=== PATIENT | male | born 1975 | race Caucasian/White ===

== ENCOUNTER 2016-10-19 07:20 | Emergency (ER) | payer MEDICAID, OTHER ==
[~2016-10-19] VITALS: Wt 89.0 kg
[2016-10-19] MEDS ORDERED: SULF1TAB31 PO (08:24)
[2016-10-19] MEDS ORDERED: HYDROCODONE/APAP (5/325) TAB PO ONE (08:30)
[2016-10-19] MEDS ORDERED: LIDOCAINE 1% (MDV) 20 ML INJ SC ONE (08:30)
[2016-10-19] MEDS ORDERED: DIPHTH/TET/ACEL PERTUSS (ADULT) 0.5 ML VIAL IM* ONE (08:30)
--- NOTE | 2016-10-19 08:30 | ERD ---
ER Documentation Chief Complaint Date/Time DATE: 10/19/16 TIME: 08:24 Chief Complaint ABSCESS ON LOWER BACK HPI Patient is a 41-year-old male who presents the emergency for concerns of an abscess to his left buttocks. Patient states the lesion started approximately 1 week ago. Patient states the lesion continues to grow in size. Patient saw his primary care physician who gave him Rocephin, Toradol and dexamethasone shot in the office. Patient was discharged home with a prescription for Keflex. Patient states despite taking his medications, his abscess continues to grow in size. Patient reports redness. Patient ports difficulty sitting secondary to pain. Patient denies any fevers or chills. Patient denies any nausea, vomiting or LOC. Patient does not recall his last tetanus vaccination, states greater than 5 years. ROS All systems reviewed and are negative except as per history of present illness. Medications Home Meds Active Scripts Hydrocodone/Acetaminophen ([place] 5-325 Tablet) 1 Each Tablet, 1 TAB PO Q6H Y for PAIN, #7 TAB Prov:JEAN GALAN PA-C 10/19/16 Ibuprofen* (Motrin*) 600 Mg Tab, 600 MG PO Q6, #30 TAB Prov:JEAN GALAN PA-C 10/19/16 Sulfamethoxazole/Trimethoprim* (Bactrim Ds* Tablet) 1 Each Tablet, 1 TAB PO BID , #20 TAB Prov:JEAN GALAN PA-C 10/19/16 PMhx/Soc Medical and Surgical Hx: pt denies Medical Hx, pt denies Surgical Hx History of Surgery: No Anesthesia Reaction: No Hx Neurological Disorder: No Hx Respiratory Disorders: No Hx Cardiac Disorders: No Hx Psychiatric Problems: No Hx Miscellaneous Medical Probl: No Hx Alcohol Use: No Hx Substance Use: No Hx Tobacco Use: No Smoking Status: Never smoker FmHx Family History: No diabetes Physical Exam Vitals Vital Signs Date Time Temp Pulse Resp B/P Pulse Ox O2 Delivery O2 Flow Rate FiO2 10/19/16 07:26 98.0 75 18 148/71 99 Physical Exam GENERAL: Well-developed, well-nourished male. Appears in no acute distress. Speaking in full sentences. HEAD: Normocephalic, atraumatic. EYES: Pupils are equally reactive bilaterally. EOMs grossly intact. No conjunctival erythema. ENT: Moist mucous membranes. No uvula deviation. No kissing tonsils. NECK: Supple. No meningismus. Normal range of motion of the neck. LUNG: Clear to auscultation bilaterally. No rhonchi, wheezing, rales or coarse breath sounds. HEART: Regular rate and rhythm. No murmurs, rubs or gallops. LEFT BUTTOCKS: 3 cm circular abscess noted to the upper left buttocks. + Redness and swelling. Minimal warmth. No streaking. + Fluctuance and induration EXTREMITIES: Equal pulses bilaterally. No peripheral clubbing, cyanosis or edema. No unilateral leg swelling. NEUROLOGIC: Alert and oriented. Moving all four extremities without any difficulty. Normal speech. Steady gait. SKIN: Normal color. Warm and dry. No rashes or lesions. Results 24 hrs Current Medications Medications (Trade) Dose Ordered Sig/Noemí Route PRN Reason Start Time Stop Time Status Last Admin Dose Admin Acetaminophen/ Hydrocodone Bitart ([place] (5/325)) 1 tab ONCE ONCE PO 10/19/16 08:30 10/19/16 08:31 DC 10/19/16 08:32 Lidocaine (Xylocaine 1% (Mdv) 20 ml) 20 ml ONCE ONCE SC 10/19/16 08:30 10/19/16 08:31 DC 10/19/16 08:32 Diphtheria/ Tetanus/Acell Pertussis (Adacel) 0.5 ml ONCE ONCE IM* 10/19/16 08:30 10/19/16 08:31 DC 10/19/16 08:33 Procedures/MDM ED COURSE: The patient was stable throughout ED course. I kept the patient and/or family informed of laboratory and diagnostic imaging results throughout the ED course. PROCEDURES: INCISION AND DRAINAGE: The patient was verbally consented prior to procedure. Patient was explained the risks, benefits and alternatives to this procedure. Location: Left buttocks Abscess size: 3 cm Anesthesia: local 1% lidocaine, 5 cc Preparation: The area was prepped in a sterile fashion using betadine x3 cleanses. A sterile field was prepared. Technique: A sterile 11 blade scalpel was used to make a 1 cm linear incision into the abscess. Procedure: A midline abscess incision was made using a sterile scalpel in a linear fashion. Purulent material was expressed with direct pressure. Blunt probing was used to break up loculations. Bleeding was minimal. Packing: none The patient tolerated the procedure well with no complications. The wound was dressed in sterile gauze. The patient was neurovascularly intact post- procedure. Post-procedural wound care was discussed with the patient. MEDICATIONS GIVEN: [place], Tdap Patient tolerated medication well with no adverse reactions. Patient reported improvement in pain. MEDICAL DECISION MAKING: This is a 41-year-old male who presents to the ED for concerns of an abscess to his left buttocks. Vital signs were reviewed. Patient is afebrile. Incision and drainage were performed here in the emergency department. Copious amounts of purulent discharge were expressed from the affected site. Blunt probing was used to break up loculations. Patient was given his tetanus vaccination here in the ED.. Post-procedural wound care was discussed with the patient. At this time, patient's presentation is most consistent with buttocks abscess, low suspicion for pilonidal abscess, necrotizing fasciitis, neurovascular injury, fracture, dislocation. Patient was advised to continue Keflex. Patient will be prescribed Bactrim as well. Patient was advised to return to the ED in 2 days for wound recheck. PRESCRIPTIONS: Bactrim, ibuprofen, [place] DISCHARGE: At this time, the patient is stable for discharge and outpatient management. Patient was advised to return to the ED in 2 days for wound recheck. Post- procedural wound care was discussed with the patient. I have instructed the patient to promptly return to the ER for any new or worsening symptoms including increasing pain, fever, warmth, redness or swelling. The patient and/ or family expressed understanding of and agreement with this plan. All questions were answered. Home care instructions were provided. Departure Diagnosis: Primary Impression: Abscess Condition: Stable Patient Instructions: Abscess, Incision And Drainage Referrals: [facility] YOU HAVE RECEIVED A MEDICAL SCREENING EXAM AND THE RESULTS INDICATE THAT YOU DO NOT HAVE A CONDITION THAT REQUIRES URGENT TREATMENT IN THE EMERGENCY DEPARTMENT. FURTHER EVALUATION AND TREATMENT OF YOUR CONDITION CAN WAIT UNTIL YOU ARE SEEN IN YOUR DOCTORS OFFICE WITHIN THE NEXT 1-2 DAYS. IT IS YOUR RESPONSIBILITY TO MAKE AN APPOINTMENT FOR FOLOW-UP CARE. IF YOU HAVE A PRIMARY DOCTOR --you should call your primary doctor and schedule an appointment IF YOU DO NOT HAVE A PRIMARY DOCTOR YOU CAN CALL OUR PHYSICIAN REFERRAL HOTLINE AT IF YOU CAN NOT AFFORD TO SEE A PHYSICIAN YOU CAN CHOSE FROM THE FOLLOWING [facility] [address] [facility]. [facility] [address] [facility] [address] [facility] [address] [facility] [address] [facility]. [facility] [address] [facility]. [facility] YOU HAVE RECEIVED A MEDICAL SCREENING EXAM AND THE RESULTS INDICATE THAT YOU DO NOT HAVE A CONDITION THAT REQUIRES URGENT TREATMENT IN THE EMERGENCY DEPARTMENT. FURTHER EVALUATION AND TREATMENT OF YOUR CONDITION CAN WAIT UNTIL YOU ARE SEEN IN YOUR DOCTORS OFFICE WITHIN THE NEXT 1-2 DAYS. IT IS YOUR RESPONSIBILITY TO MAKE AN APPOINTMENT FOR FOLOW-UP CARE. IF YOU HAVE A PRIMARY DOCTOR --you should call your primary doctor and schedule and appointment IF YOU DO NOT HAVE A PRIMARY DOCTOR YOU CAN CALL OUR PHYSICIAN REFERRAL HOTLINE AT . IF YOU CAN NOT AFFORD TO SEE A PHYSICIAN YOU CAN CHOSE FROM THE FOLLOWING [facility] INSTITUTIONS: [facility] [address] [place] [address] [facility] [address] [place] [address] [facility] + [facility] [address] [place] [address] Additional Instructions: Call your primary care doctor TOMORROW for an appointment during the next 1-2 days.See the doctor sooner or return here if your condition worsens before your appointment time. Return in 2 days for wound recheck. Start taking Bactrim. Continue Keflex. JEAN GALAN PA-C Oct 19, 2016 08:30
[2016-10-19] MEDS ORDERED: IBUP-1542 PO (09:15)
[2016-10-19] MEDS ORDERED: HYDR-906 PO (09:15)
== END 2016-10-19 09:32 | disposition home or self-care (01) ==
LOC: FTE 07:20
DX: L02.31 Cutaneous abscess of buttock (principal); Z23 Encounter for immunization
CPT/HCPCS: 10060; 90471; 90715; Z7502; Z7610

== ENCOUNTER 2016-10-21 06:49 | Emergency (ER) | payer MEDICAID ==
[~2016-10-21] VITALS: Wt 90.0 kg
[~2016-10-21 06:49] MED LIST: HYDR-906 PO; IBUP-1542 PO; SULF1TAB31 PO
--- NOTE | 2016-10-21 07:07 | ERD ---
ER Documentation Chief Complaint Date/Time DATE: 10/21/16 TIME: 07:05 Chief Complaint LEFT BUTTOCK I AND D WOUND RECHECK. NO COMPLAINTS AT THIS TIME. HPI Is a 41-year-old male who presents the emergency department today for a wound check of an abscess he had drained 2 days ago. Patient states he is taking his medications as prescribed. Denies any fevers or chills. Denies any complaints. ROS All systems reviewed and are negative except as per history of present illness. Medications Home Meds Active Scripts Hydrocodone/Acetaminophen ([place] 5-325 Tablet) 1 Each Tablet, 1 TAB PO Q6H Y for PAIN, #7 TAB Prov:JEAN GALAN PA-C 10/19/16 Ibuprofen* (Motrin*) 600 Mg Tab, 600 MG PO Q6, #30 TAB Prov:JEAN GALAN PA-C 10/19/16 Sulfamethoxazole/Trimethoprim* (Bactrim Ds* Tablet) 1 Each Tablet, 1 TAB PO BID , #20 TAB Prov:JEAN GALAN PA-C 10/19/16 Allergies Allergies: Coded Allergies: No Known Allergy (Unverified , 10/19/16) PMhx/Soc History of Surgery: No Anesthesia Reaction: No Hx Neurological Disorder: No Hx Respiratory Disorders: No Hx Cardiac Disorders: No Hx Psychiatric Problems: No Hx Miscellaneous Medical Probl: No Hx Alcohol Use: No Hx Substance Use: No Hx Tobacco Use: No Smoking Status: Never smoker Physical Exam Vitals Vital Signs Date Time Temp Pulse Resp B/P Pulse Ox O2 Delivery O2 Flow Rate FiO2 10/21/16 06:51 98.5 77 21 138/81 99 Physical Exam Const: No acute distress Head: Atraumatic Eyes: Normal Conjunctiva ENT: Normal External Ears, Nose and Mouth. Neck: Full range of motion..~ No meningismus. Resp: Clear to auscultation bilaterally Cardio: Regular rate and rhythm, no murmurs Skin: Evidence of incision and drainage left buttock with no erythema or warmth. No purulent drainage Neur: Awake and alert Psych: Normal Mood and Affect Procedures/MDM This is a 41-year-old male who presents the emergency department today for wound check an abscess that he had drained 2 days ago. There was no packing placed at the time and no evidence of packing. Patient is afebrile and otherwise well-appearing. He has no complaints. Wound is no longer draining at this time there is no erythema or warmth. Low suspicion for sepsis, deep space tracking infection. Patient was instructed to continue taking his antibiotics as prescribed. Wound was dressed here in the emergency department. At this time the patient is stable for discharge and outpatient management. Patient should follow up with their PCP in the next 1-2 days. They may return to the emergency department sooner for any persistent or worsening of symptoms. Patient understood and agreed with the plan. Departure Diagnosis: Primary Impression: Wound check, abscess Condition: Fair Patient Instructions: Wound Care [facility] Usted se blanton hecho un examen mdico de control que le indica que no est en gilda condicin que requiera tratamiento urgente en el Departamento de Emergencia. Un estudio ms profundo y el tratamiento de russ condicin pueden esperar sin ningn riesgo hasta que usted sea atendida/o en el consultorio de russ mdico o gilda cl adam. Es responsabilidad suya arreglar gilda carlos para el seguimiento del jaiden. MANEJO DE CONDICIONES NO URGENTES EN EL FUTURO 1) Si usted tiene un mdico de atencin primaria: Usted debera llamar a russ mdico de atencin primaria antes de venir al departamento de emergencia. Despus de las horas de consultorio, russ doctor o russ asociado/a est disponible por telfono. El mdico o enfermero de bhumika en el servicio telefnico puede asesorarle por catie medio para atender el problema, o jaiden contrario se puede programar gilda carlos. 2) Si usted no tiene un mdico de atencin primaria: Llame al mdico o clnica de referencia que aparece abajo alan las horas de consultorio para hacer gilda carlos para que le vean. CLINICAS: [facility] [phone] [address] [facility] [phone] [place] [facility] [phone] [facility] [phone] [address] [facility] [phone] [address] [facility]. [phone] [address] Additional Instructions: Llame al doctor MAANA y scarlett gilda CARLOS PARA DENTRO DE 1-2 ARMENDARIZ.Dgale a la secretaria que nosotros le instruimos hacer esta carlos.Avise o llame si russ condicin se empeora antes de la carlos. Regresa aqui si peor o no mejor. Continue taking antibiotics as prescribed Keep wound clean SUMMER NEWELL PA-C Oct 21, 2016 07:06
== END 2016-10-21 07:10 | disposition home or self-care (01) ==
LOC: FTE 06:49
DX: Z48.01 Encounter for change or removal of surgical wound dressing (principal)
CPT/HCPCS: 99281